=== PATIENT | female | born 1940 | race Caucasian/White ===

== ENCOUNTER 2017-11-30 05:48 | Inpatient (IN) | payer MEDICARE ==
[2017-11-29 08:48] VITALS: BMI 20.1
[2017-11-30] MEDS ORDERED: Levofloxacin 500 mg/D5W 100 ml Premix Bag ONE (06:09)
[2017-11-30] MEDS ORDERED: Clindamycin/D5W 900 mg/50 ml Premix Bag ONE (06:09)
[2017-11-30] MEDS ORDERED: Midazolam HCl 2 mg/2 ml Vial ONE (06:11)
[2017-11-30] MEDS ORDERED: Fentanyl 250 MCG/5 ML VIAL ONE (06:11)
[2017-11-30 06:28] LABS: #Basophils 0.1 thou/uL (0.0-0.2); #Eosinphils 0.1 thou/uL (0.0-0.7); #Lymphocytes 2.2 thou/uL (1.20-3.40); #Monocytes 0.6 thou/uL (0.11-0.59); #Neutrophils 2.4 thou/uL (1.40-6.50); %Basophils 1.7 % (0.0-1.0); %Eosinophils 2.7 % (0.0-10.0); %Lymphocytes 40.4 % (21.0-51.0); %Monocytes 11.4 % (0.0-10.0); %Neutrophils 43.9 % (42.0-75.0); Hemoglobin 14.3 g/dL (12.0-16.0); Mean Corpuscular HGB CONC 32.3 g/dL (32.0-36.0); Mean Corpuscular Hemoglobin 29.6 pg (27.0-31.0); Mean Corpuscular Volume 91.7 fl (81.0-99.0); Mean Platelet Volume 6.8 fL (7.4-10.4); Platelet Count 288 thou/uL (130-400); RBC Distribution Width 13.9 % (11.5-14.5); Red Blood Cell (RBC) Count 4.81 mill/uL (4.20-5.40); White Blood Cell (WBC) Count 5.5 thou/uL (4.8-10.8)
[2017-11-30 06:35] LABS: Prothrombin Time 13.2 SEC (12.0-14.7)
[2017-11-30] MEDS ORDERED: Sodium Chloride 0.9% 20 ML ONE (06:35)
[2017-11-30] MEDS ORDERED: Bupivacaine HCl 0.5%/Epinephrine 1:200,000/PF 30 ml Vial ONE (06:35)
[2017-11-30] MEDS ORDERED: Thrombin 5000 UNITS/5 ML VIAL ONE (06:35)
--- NOTE | 2017-11-30 06:42 | HP ---
REASON FOR ADMISSION: Here for lumbar spine surgery. HISTORY OF PRESENT ILLNESS: Ms. Briggs is a 77-year-old woman with right low back and gluteal pain, ma de much worse with standing and walking. Pain occasionally radiates on the right leg. In the past s he had a sacroiliac joint injections which alleviated some of her discomfort and for that reason had a metal placed to mobilize her sacroiliac joint. Unfortunately, she still has the pain and has to be nd forward or sit down frequently from a standing position for relief. Her MRI scan shows spondyloli sthesis at L5-S1, bilateral foraminal and lateral recess disease. She is here for decompression and fixation of the lumbosacral joint. PAST MEDICAL HISTORY: Hypothyroidism. PAST SURGICAL HISTORY: Tubal ligation in 1970, hysterectomy in 1981, inguinal hernia in 1996, cystoc sofi 1999, right inguinal hernia in 2006. Oral surgery in 2010 and a right SI joint fusion in 2013. MEDICATIONS: Levothyroxine, sumatriptan, Aleve, Coenzyme Q10. ALLERGIES: No known drug allergies. FAMILY HISTORY: Both parents are . There is no family history of significant spine disease. SOCIAL HISTORY: Ms. Briggs is and lives with her . She is a nonsmoker. She has 2 adul t children. REVIEW OF SYSTEMS: Otherwise negative. PHYSICAL EXAMINATION: GENERAL: Ms. Briggs is awake and alert. She is cognitively intact. Her cranial nerves are working wel l. There is normal expressive and receptive language function, alternating rapid motions are perform ed rapidly and smoothly. There is no lateralizing motor or sensory deficits in the lower extremities . There is normal strength in the iliopsoas, quadriceps, hamstrings, anterior tibia and EHL and heena rocnemius. The sensory examination does not reveal any dermatomal sensory loss from L1-S1. Reflexes are hypoactive and symmetric and the toes are downgoing. There is no clonus. IMAGING FINDINGS AND TEST RESULTS: MR images show lateral recess stenosis and foraminal disease at L 5-S1 from spondylolisthesis. Flexion, extension views do not show any other area of spinal instabili ty. ASSESSMENT: Spondylolisthesis with foraminal and lateral recess stenosis. PLAN: Here for decompression and fusion of the lumbosacral joint. Informed consent was obtained in the office. I answered some postoperative questions this morning. We will take her to the operating room.
[2017-11-30] MEDS ORDERED: Scopolamine 1.5 mg/72 hour Patch ONE (06:48)
[2017-11-30] MEDS ORDERED: Propofol 500 MG/50 ML VIAL ONE (07:17)
[2017-11-30] MEDS ORDERED: Promethazine HCl 25 MG/ML VIAL SLOW IVP PRN (10:00)
[2017-11-30] MEDS ORDERED: Fentanyl 100 MCG/2 ML VIAL ONE ×2 (13:40→14:44)
[2017-11-30] MEDS ORDERED: tiZANidine HCl 4 MG TAB PO PRN (13:41)
[2017-11-30] MEDS ORDERED: Promethazine HCl 25 MG/ML VIAL IM PRN (13:41)
[2017-11-30] MEDS ORDERED: Promethazine HCl 12.5 MG SUPP PR PRN (13:41)
[2017-11-30] MEDS ORDERED: diphenhydrAMINE 50 MG/ML VIAL IVP PRN (13:41)
[2017-11-30] MEDS ORDERED: Bisacodyl 10 MG SUPP PR PRN (13:41)
[2017-11-30] MEDS ORDERED: Acetaminophen/Codeine 30-300mg Tablet PO PRN (13:41)
[2017-11-30] MEDS ORDERED: Meperidine HCl/PF 25 MG/ML VIAL SLOW IVP PRN (13:41)
[2017-11-30] MEDS ORDERED: Promethazine 25 MG TAB PO PRN (13:41)
[2017-11-30] MEDS ORDERED: diphenhydrAMINE 25 MG CAP PO PRN (13:41)
[2017-11-30] MEDS ORDERED: Ondansetron HCl/PF 4 MG/2 ML Vial IVP PRN (13:41)
--- NOTE | 2017-11-30 14:00 | OP ---
DATE OF PROCEDURE: 11/30/2017 SURGEON: Celia Lopez M.D. MUD ANALYSIS WELL LOGGING OPERATOR: BETO Mata. PREOPERATIVE INDICATION: Treat pain, prevent neurological deterioration. PREOPERATIVE DIAGNOSES: Lumbosacral spondylolisthesis with L5 foraminal disease and L5-S1 lateral re cess stenosis. POSTOPERATIVE DIAGNOSES: Lumbosacral spondylolisthesis with L5 foraminal disease and L5-S1 lateral r ecess stenosis. OPERATIVE PROCEDURES: Decompressive laminectomy, medial facetectomy, foraminotomy to decompress the lateral recesses and foramina, and transforaminal lumbar interbody arthrodesis L5-S1, placement of in tervertebral biomechanical device L5-S1, posterolateral arthrodesis L5-S1 and pedicle screw and philip i nstrumentation L5-S1. Local morselized autograft, morselized allograft, operating microscope. PREOPERATIVE MEDICATIONS: Levaquin 500 mg IV, clindamycin 900 mg IV. DRAIN NUMBER: Zero. DRAIN TYPE: None. OPERATIVE DICTATION: The patient was brought to the operating room. General endotracheal anesthesia was induced. The patient was positioned prone on the Luis frame with appropriate padding for the chest and hips. A lateral fluoro radiograph was used to plan our incision. The lumbar skin was jamel rilely prepped and draped. We opened with a 10 blade knife and controlled bleeding with bipolar and monopolar cautery. We used monopolar cautery to dissect through subcutaneous tissues to the thoracod orsal fascia. We incised the fascia in the midline. We reflected the paraspinal muscles off the spi nous process and lamina of L4, L5, and S1. Lateral fluoro radiograph confirmed the levels upon which we were operating. We then placed a self-retaining retractor. We dissected over the facet joints a t L4-5 and L5-S1 to identify the sacral ala and the L5 transverse processes bilaterally. There was a significant spondylolisthesis. The L5 transverse processes were significantly deeper in the sacral wings. Then, using Adson and Kerrison rongeurs to fashion a laminectomy of L5 as well as the inferio r portion of L4, we decompressed the lateral recesses at L4-5 and L5-S1. We ensured the L5 and S1 ne rve roots were no longer compressed. We performed a wide foraminotomy on either side and turned our attention to arthrodesis. We removed the right-sided L5-S1 facet joint and the pars interarticularis to access the intervertebr al disk. We incised the disk and removed disk contents using curettes and rongeurs. We measured the height of the interspace with a bone rasp to 9 mm. A 9 mm PEEK intervertebral graft was brought int o the field. Our laminectomy bone was carefully morselized on the back table, added to demineralize bone matrix and this fusion substrate was placed in the PEEK interbody device. The device was advanc ed under radiographic guidance into the appropriate depth. We turned our attention to pedicle screw instrumentation. Using bony anatomic landmarks, palpation of the medial portion of the pedicles, and a lateral fluoro radiograph as a guide, we chose entry points for pedicle screws at L5 and S1. We drilled the entry p oints, used the bone awl to create trajectories and then a threaded tap to tap them. We probed the t rajectories and found them completely encased in bone. We placed 6.5 mm diameter screws at L5 and S1 bilaterally. A 360 degree image set was generated with our isocentric C-arm confirming adequate pos ition of our pedicle screw instrumentation. We then irrigated copiously with bacitracin irrigation. We decorticated the transverse processes bilaterally and left demineralized bone matrix and morseliz ed autograft over the decorticated bone as are posterolateral fusion substrate. Rods were brought do wn into our screw heads. We tightened caps over the rods. Before final tightening, we applied a com pression force across the interspace to keep the interbody graft in place. We tightened caps down us ing a snotln-[id number]-[id number] mechanism to adequate tightness. In the process for decompression, two s mall pin holes in the dura were encountered. Under the operating microscope and using microsurgical techniques, these were sewn up in 9-0 Prolene. A Valsalva was administered and there was no CSF egre ss. We reinforced our dural closure with DuraSeal tissue sealant. While under the operating microsc ope, we made sure that we could visualize the lateral recesses at L4-L5 and L5-S1 and that the L5 and S1 nerve roots were not compressed there nor in their foramina. We applied vancomycin powder to the wound at the completion of the case. We closed the wound in anatomic layers. We applied a sterile dressing. This was a clean case and no contamination.
[2017-11-30] MEDS ORDERED: Lidocaine 1% PF 5 ML VIAL ONE (15:43)
[2017-11-30] MEDS ORDERED: Dexamethasone 20 MG/5 ML VIAL ONE (15:43)
[2017-11-30] MEDS ORDERED: PHENYLEPHRINE-NS 100 MCG/ML 10 ML SYRINGE ONE (15:43)
[2017-11-30] MEDS ORDERED: Ondansetron HCl/PF 4 MG/2 ML Vial ONE (15:43)
[2017-11-30] MEDS ORDERED: ePHEDrine/0.9% NaCl/PF SYRINGE 50 mg/10 ml ONE (15:43)
[2017-11-30] MEDS ORDERED: PROPOFOL 200 MG/20 ML VIAL ONE (15:43)
[2017-11-30] MEDS: Acetaminophen/Codeine 30-300mg Tablet PO PRN ×2 (15:58→21:33)
[2017-11-30] MEDS: Clindamycin/D5W 900 MG in Premix Bag 1 BAG IVPB SCH ×2 (15:59→23:27)
[2017-11-30] MEDS ORDERED: Sodium Chloride 0.9% 1,000 ML IV SCH (23:30)
[2017-12-01] MEDS ORDERED: Sodium Chloride 0.9% 500 ML IV SCH (02:45)
[2017-12-01] MEDS: Sodium Chloride 0.9% 1,000 ML IV SCH ×5 (03:30→23:32)
[2017-12-01] MEDS ORDERED: Hydrocortisone Sod Succ/PF 100 mg/2 ml Vial IVP SCH (05:15)
[2017-12-01 05:32] LABS: #Lymphocytes 1.3 thou/uL (1.20-3.40); #Monocytes 0.6 thou/uL (0.11-0.59); #Neutrophils 5.2 thou/uL (1.40-6.50); %Basophils 0.3 % (0.0-1.0); %Eosinophils 0.1 % (0.0-10.0); %Lymphocytes 17.8 % (21.0-51.0); %Monocytes 8.9 % (0.0-10.0); %Neutrophils 72.9 % (42.0-75.0); Hemoglobin 9.6 g/dL (12.0-16.0); Mean Corpuscular HGB CONC 32.2 g/dL (32.0-36.0); Mean Corpuscular Hemoglobin 29.4 pg (27.0-31.0); Mean Corpuscular Volume 91.4 fl (81.0-99.0); Mean Platelet Volume 6.5 fL (7.4-10.4); Platelet Count 202 thou/uL (130-400); RBC Distribution Width 13.6 % (11.5-14.5); Red Blood Cell (RBC) Count 3.27 mill/uL (4.20-5.40); White Blood Cell (WBC) Count 7.1 thou/uL (4.8-10.8)
[2017-12-01 05:42] LABS: Lactic Acid 2.2 mmol/L (0.5-2.2)
[2017-12-01 05:46] LABS: Anion Gap 8 mmol/L (10-20); BUN (Urea Nitrogen) 11 mg/dL (9.8-20.1); Calc. Creatinine Clearance 62 mL/min (70-130); Calcium 7.3 mg/dL (7.8-10.44); Carbon Dioxide 26 mmol/L (23-31); Chloride 102 mmol/L (98-107); Estimated GFR-MDRD Greater than 90; Glucose 100 mg/dL (83-110); Potassium 3.2 mmol/L (3.5-5.1); Sodium 133 mmol/L (136-145)
--- NOTE | 2017-12-01 06:38 | PRG ---
DATE OF SERVICE: 12/01/2017 I am seeing Ms. Briggs in her hospital room this morning. She is postop day #1 from decompression fusi on lumbar spine. She has no radiating leg pain anymore. Her back is sore. Her blood pressures have been low and the medical team was consulted overnight. Laboratory studies were done and a bolus of fluid given. This morning, blood pressures are in the mid 80s. She is awake and alert and answering questions sriram ropriately. She is moving all four extremities. She has good strength and L5 myotome. She has good sensation in L5 dermatome and the S1 dermatome. My plan is to make some changes to the pain medication regimen. We will stop the Demerol which is dr opping her blood pressure. We will use very small doses of morphine and make sure that she has antie metics on board because morphine tends to make her feel nauseated. Will have some bland food in her stomach as well. Will begin mobilization with Physical Therapy and asked her to be sure she is not p resyncopal when she sits and stands before going on any walks with the therapist. She is to walk as much as possible. We will look for discharge tomorrow either home or to inpatient rehabilitation.
[2017-12-01] MEDS: Clindamycin/D5W 900 MG in Premix Bag 1 BAG IVPB SCH (08:23)
[2017-12-01] MEDS: Acetaminophen 325 MG TAB PO PRN ×4 (08:23→23:32)
[2017-12-02] MEDS: Ondansetron ODT 4 MG TAB PO PRN ×2 (03:50→23:46)
[2017-12-02] MEDS ORDERED: Docusate 100 MG CAP PO PRN (04:38)
[2017-12-02] MEDS: Sodium Chloride 0.9% 1,000 ML IV SCH (05:22)
--- NOTE | 2017-12-02 06:57 | PRG ---
DATE OF SERVICE: 12/02/2017 Ms. Briggs is 2 days out from decompression fusion of the lumbosacral spine. She is up out of bed atte mpting to have a bowel movement this morning. When I came back she was still in the bathroom. I barbie l see her before our afternoon surgeries later this morning or over the lunch hour. If she is safe f or activities of daily living, then she can be discharged at that time.
[2017-12-02] MEDS ORDERED: Bisacodyl 5 MG TAB PO PRN (10:38)
[2017-12-02] MEDS ORDERED: Bisacodyl 5 MG TAB PO SCH (11:00)
[2017-12-02] MEDS: Acetaminophen 325 MG TAB PO PRN (11:15)
--- NOTE | 2017-12-02 17:28 | PDOC.PN ---
- Subjective Encounter Start Date: 12/02/17 Encounter Start Time: 11:00 Pt seen for management of medical comorbidities including hypotension. Complains of constipation. Denies chest pain, shortness of breath, fevers or chills. Denies nausea or vomiting. Denies light-headedness. - Objective Vital Signs & Weight: Vital Signs (12 hours) Temp Pulse Pulse Resp BP BP Pulse Ox 12/02/17 16:00 97.4 F L 76 15 110/61 95 12/02/17 12:00 98.7 F 70 16 96/55 L 96 12/02/17 09:44 75 97/52 L 12/02/17 08:00 98.4 F 74 16 12/02/17 07:46 98.4 F 74 16 97/58 L 91 L Pulse Ox 12/02/17 16:00 12/02/17 12:00 12/02/17 09:44 93 L 12/02/17 08:00 12/02/17 07:46 Weight Weight 110 lb I&O: 12/01/17 12/02/17 12/03/17 06:59 06:59 06:59 Intake Total 2080 5120 Output Total 550 1000 Balance 1530 4120 Result Diagrams: 12/01/17 05:11 12/01/17 05:11 Phys Exam - Physical Examination Constitutional: NAD HEENT: moist MMs Neck: supple Respiratory: clear to auscultation bilateral Cardiovascular: RRR Gastrointestinal: soft Neurological: moves all 4 limbs Psychiatric: normal affect Dx/Plan (1) Hypotension Status: Acute Comment: Etiology unclear. Pt is asymptomatic, not in volume overload. Continue hydration for now. (2) Constipation Code(s): K59.00 - CONSTIPATION, UNSPECIFIED Status: Acute Comment: Dulcolax now and daily as needed (3) Hypothyroidism Code(s): E03.9 - HYPOTHYROIDISM, UNSPECIFIED Status: Chronic Comment: continue synthroid (4) Migraines Code(s): G43.909 - MIGRAINE, UNSP, NOT INTRACTABLE, WITHOUT STATUS MIGRAINOSUS Status: Chronic Comment: continue PRN sumatriptan - Plan * . Review of Systems - Review of Systems Constitutional: negative: fever, chills, sweats, weakness, malaise Cardiovascular: negative: chest pain, palpitations, edema, light headedness Gastrointestinal: Constipation - Medications/Allergies Allergies/Adverse Reactions: Allergies Allergy/AdvReac Type Severity Reaction Status Date / Time Iodine and Iodide Containing Allergy Verified 11/29/17 08:49 Produc morphine Allergy Verified 11/29/17 08:49 Penicillins Allergy Verified 11/29/17 08:49 Sulfa (Sulfonamide Allergy Verified 11/29/17 08:49 Antibiotics) Medications: Current Medications Acetaminophen (Tylenol) 650 mg PO Q4H PRN PRN Reason: Headache/Fever or Pain Last Admin: 12/02/17 11:15 Dose: 650 mg Bisacodyl (Dulcolax) 10 mg MI Q12H PRN PRN Reason: Constipation Bisacodyl (Dulcolax) 10 mg PO DAILYPRN PRN PRN Reason: Constipation Diphenhydramine HCl (Benadryl) 25 mg IVP Q6H PRN PRN Reason: Itching Diphenhydramine HCl (Benadryl) 25 mg PO Q6H PRN PRN Reason: Itching Docusate Sodium (Colace) 100 mg PO DAILYPRN PRN PRN Reason: CONSTIPATION Last Admin: 12/02/17 07:00 Dose: 100 mg Sodium Chloride (Normal Saline 0.9%) 1,000 mls @ 70 mls/hr IV .[id number] MARIA ELENA Last Admin: 12/02/17 05:22 Dose: 1,000 mls Ondansetron HCl (Zofran Odt) 4 mg PO DAILYPRN PRN PRN Reason: Nausea Last Admin: 12/02/17 03:50 Dose: 4 mg Promethazine HCl (Phenergan) 12.5 mg PO Q4H PRN PRN Reason: Nausea/Vomiting Last Admin: 11/30/17 17:47 Dose: 12.5 mg Promethazine HCl (Phenergan) 12.5 mg IM Q4H PRN PRN Reason: Nausea/Vomiting Promethazine HCl (Phenergan Suppository) 12.5 mg MI Q4H PRN PRN Reason: Nausea/Vomiting Sodium Chloride (Flush - Normal Saline) 10 ml IVF PRN PRN PRN Reason: Saline Flush
[2017-12-02] MEDS ORDERED: SUMAtriptan Succinate 50 MG TAB PO PRN (17:30)
[2017-12-03] MEDS: Sodium Chloride 0.9% 1,000 ML IV SCH (03:37)
[2017-12-03] MEDS ORDERED: Levothyroxine Sodium 75 MCG TAB PO SCH (06:00)
--- NOTE | 2017-12-03 07:44 | PRG ---
DATE OF SERVICE: 12/03/2017 SUBJECTIVE: Ms. Briggs is starting her postoperative day #3 after decompression and fusion of lumbar s pine. There is a fall overnight when she slipped out of bed and eventually hit her head on the floor . She remained neurologically intact. I am seeing her this morning in her hospital room and there h as no new complaints. Her vital signs have been stable overnight. Her blood pressure is under good control and there is no fevers recorded. On examination this morning, she is wide awake. She is jayne rt. She is answering questions appropriately. Her memory is normal. Her cranial nerves are functio leonarda well and there is no lateralizing motor or sensory deficits I can appreciate. In the lower extr emities, there is good motor and sensory function all the way down to the toes. Ms. Briggs ambulated yesterday in the hallway and made it to the end of the perez and back. If she is a mbulating safely this morning, she will be discharged. We will make sure she has a prescription for a shower chair before she goes, we will leave prescriptions for pain medication and muscle relaxant i n her chart for after discharge, we went over wound care. Dressing can be removed. The wound should not be submerged under the service of the water, but showers are acceptable. Followup arrangements will be made in our office at [facility] to check her incision and start physical therapy.
[2017-12-03] MEDS ORDERED: Lactinex Tablet PO SCH (09:00)
[2017-12-03] MEDS ORDERED: Ubidecarenone 50 MG CAP PO SCH (09:00)
[2017-12-03] MEDS: Acetaminophen 325 MG TAB PO PRN ×2 (09:30→15:06)
--- NOTE | 2017-12-03 13:31 | PDOC.PN ---
- Subjective Encounter Start Date: 12/03/17 Encounter Start Time: 08:00 Pt seen for followup re: hypothyroidism. Denies chest pain, shortness of breath , fevers or chills. Constipation resolved. - Objective MAR Reviewed: Yes Vital Signs & Weight: Vital Signs (12 hours) Temp Pulse Resp BP Pulse Ox 12/03/17 11:15 97.5 F L 79 14 111/76 92 L 12/03/17 08:00 98.5 F 76 16 109/64 93 L 12/03/17 03:27 97.9 F 102 H 16 119/69 91 L 12/03/17 02:10 97.9 F 106 H 20 124/76 92 L Weight Weight 110 lb I&O: 12/02/17 12/03/17 12/04/17 06:59 06:59 06:59 Intake Total 5120 3100 Output Total 1000 Balance 4120 3100 Result Diagrams: 12/01/17 05:11 12/01/17 05:11 Additional Labs: Labs reviewed by me Phys Exam - Physical Examination Constitutional: NAD HEENT: moist MMs Neck: supple Respiratory: clear to auscultation bilateral Cardiovascular: RRR Gastrointestinal: soft Neurological: moves all 4 limbs Psychiatric: normal affect Dx/Plan (1) Hypothyroidism Code(s): E03.9 - HYPOTHYROIDISM, UNSPECIFIED Status: Chronic Comment: stable , continue synthroid (2) Migraines Code(s): G43.909 - MIGRAINE, UNSP, NOT INTRACTABLE, WITHOUT STATUS MIGRAINOSUS Status: Chronic Comment: stable, continue PRN sumatriptan (3) Hypotension Status: Resolved (4) Constipation Code(s): K59.00 - CONSTIPATION, UNSPECIFIED Status: Resolved - Plan * . Review of Systems - Review of Systems Constitutional: negative: fever, chills, sweats, weakness, malaise Gastrointestinal: negative: Nausea, Vomiting, Abdominal Pain, Diarrhea, Constipation, Melena, Hematochezia - Medications/Allergies Allergies/Adverse Reactions: Allergies Allergy/AdvReac Type Severity Reaction Status Date / Time Iodine and Iodide Containing Allergy Verified 11/29/17 08:49 Produc morphine Allergy Verified 11/29/17 08:49 Penicillins Allergy Verified 11/29/17 08:49 Sulfa (Sulfonamide Allergy Verified 11/29/17 08:49 Antibiotics) Medications: Current Medications Acetaminophen (Tylenol) 650 mg PO Q4H PRN PRN Reason: Headache/Fever or Pain Last Admin: 12/03/17 09:30 Dose: 650 mg Acidophilus (Floranex) 1 tab PO [facility] Last Admin: 12/03/17 09:59 Dose: 1 tab Bisacodyl (Dulcolax) 10 mg MI Q12H PRN PRN Reason: Constipation Last Admin: 12/02/17 18:45 Dose: 10 mg Bisacodyl (Dulcolax) 10 mg PO DAILYPRN PRN PRN Reason: Constipation Coenzyme Q10 (Coenzyme Q10) 200 mg PO [facility] Last Admin: 12/03/17 09:59 Dose: 200 mg Diphenhydramine HCl (Benadryl) 25 mg IVP Q6H PRN PRN Reason: Itching Diphenhydramine HCl (Benadryl) 25 mg PO Q6H PRN PRN Reason: Itching Docusate Sodium (Colace) 100 mg PO DAILYPRN PRN PRN Reason: CONSTIPATION Last Admin: 12/02/17 07:00 Dose: 100 mg Levothyroxine Sodium (Synthroid) 75 mcg PO 06 [facility] Last Admin: 12/03/17 06:07 Dose: 75 mcg Ondansetron HCl (Zofran Odt) 4 mg PO DAILYPRN PRN PRN Reason: Nausea Last Admin: 12/02/17 23:46 Dose: 4 mg Promethazine HCl (Phenergan) 12.5 mg PO Q4H PRN PRN Reason: Nausea/Vomiting Last Admin: 11/30/17 17:47 Dose: 12.5 mg Promethazine HCl (Phenergan) 12.5 mg IM Q4H PRN PRN Reason: Nausea/Vomiting Promethazine HCl (Phenergan Suppository) 12.5 mg MI Q4H PRN PRN Reason: Nausea/Vomiting Sodium Chloride (Flush - Normal Saline) 10 ml IVF PRN PRN PRN Reason: Saline Flush Last Admin: 12/03/17 10:06 Dose: 10 ml Sumatriptan Succinate (Imitrex) 100 mg PO PRN PRN PRN Reason: MIGRAINES
[2017-12-03] MEDS: Ondansetron ODT 4 MG TAB PO PRN (15:09)
[2017-12-03 19:09] VITALS: BP 110/63; TEMP 98.3
--- NOTE | 2017-12-06 09:28 | DIS ---
DATE OF ADMISSION: 11/30/2017 DATE OF DISCHARGE: 12/03/2017 REASON FOR ADMISSION: Presented for spine surgery. ADMISSION HISTORY: Kylah Briggs is a 77-year-old woman with a pseudo-claudicatory pain in the right l ow back and gluteal area, radiating down the right leg. MRI scan showed a spondylolisthesis at L5-S1 with bilateral foraminal and lateral recess disease, for which she presented for decompression and f usion. HOSPITAL COURSE: The patient was taken to the operating room for decompression and fusion at the lum bosacral segment of the lumbar spine. A drain was left. She made a nice recovery in our inpatient h ospital unit. The drain was eventually removed. By the time of discharge, she was eating and voidin g spontaneously and participating in her activities of daily living without difficulty. CONDITION ON DISCHARGE: The patient had no emergency condition and stable for discharge. FOLLOWUP ARRANGEMENTS: Patient will be contacted by scheduling coordinators with the date and time o f her followup appointment. DISCUSSION: The patient was fully informed on wound care, activity restrictions, and phone numbers t o call with questions after discharge. She was sent home with new prescriptions for pain medication and a muscle relaxant.
== END 2017-12-03 15:15 | disposition home health service (06) | DRG 460 ==
LOC: SURG A 05:48
PROVIDERS: ADMIT Neurological Surgery; ATTEND Neurological Surgery
PROC: 0SG3071 Fusion of Lumbosacral Joint with Autologous Tissue Substitute, Posterior Approach, Posterior Column, Open Approach (ICD-10-PCS; principal; 2017-11-30)
PROC: 01NB0ZZ Release Lumbar Nerve, Open Approach (ICD-10-PCS; 2017-11-30)
PROC: 0SG0071 Fusion of Lumbar Vertebral Joint with Autologous Tissue Substitute, Posterior Approach, Posterior Column, Open Approach (ICD-10-PCS; 2017-11-30)
DX: M48.061 Spinal stenosis, lumbar region without neurogenic claudication (principal); M43.16 Spondylolisthesis, lumbar region; E03.9 Hypothyroidism, unspecified; Z79.899 Other long term (current) drug therapy; Z79.1 Long term (current) use of non-steroidal anti-inflammatories (NSAID); M48.07 Spinal stenosis, lumbosacral region; K59.00 Constipation, unspecified
CPT/HCPCS: 36415; 76001; 80048; 82533; 83605; 85025; 85610; 85730; A4216; C1713; C1768; G8978-GP-CJ; G8979-GP-CI; G8987-GO-CJ; G8988-GO-CJ; G8989-GO-CJ; J0670; J1100; J1720; J1956; J2001; J2175; J2250; J2405; J2704; J3010; J3370; J3490; L0639; Q0162